=== PATIENT | female | born 1945 | race Caucasian/White ===

== ENCOUNTER 2016-08-21 17:49 | Emergency (ER) | payer OTHER ==
[~2016-08-21] VITALS: Ht 152.4 cm; Wt 89.1 kg
[2016-08-21 20:15] VITALS: BP 170/83
== END 2016-08-21 20:15 | disposition home or self-care (01) ==
LOC: EME 17:49 → EXP 17:49
DX: S09.90XA Unspecified injury of head, initial encounter (principal); I10 Essential (primary) hypertension; W22.09XA Striking against other stationary object, initial encounter; Z88.0 Allergy status to penicillin
CPT/HCPCS: 70450; 99281; 99283

== ENCOUNTER 2017-04-26 00:35 | Emergency (ER) | payer OTHER ==
[~2017-04-26] VITALS: Ht 152.4 cm; Wt 85.6 kg
[2017-04-26] MEDS ORDERED: FLONASE16 G1 BOTH NARES (01:39)
[2017-04-26] MEDS ORDERED: PREDNISONE20 MG PO (01:39)
[2017-04-26] MEDS ORDERED: ZITHROMAX Z-PA250 MG PO (01:39)
[2017-04-26] MEDS ORDERED: TESSALON PERLE100 MG PO (01:39)
[2017-04-26 02:11] VITALS: BP 158/72
== END 2017-04-26 02:12 | disposition home or self-care (01) ==
LOC: EME 00:35
DX: J01.90 Acute sinusitis, unspecified (principal); J20.9 Acute bronchitis, unspecified; I10 Essential (primary) hypertension; K21.9 Gastro-esophageal reflux disease without esophagitis; M06.9 Rheumatoid arthritis, unspecified; Z88.0 Allergy status to penicillin
CPT/HCPCS: 71046; 94640; 99281; 99284; J7512